=== PATIENT | male | born 1980 | race Caucasian/White ===

== ENCOUNTER 2021-09-07 15:22 | Emergency (ER) | payer OTHER, BC ==
[2021-09-07] MEDS ORDERED: fentaNYL 100 MCG/2 ML SDV IM ONE (15:55)
--- NOTE | 2021-09-07 16:16 | EDM.PDOC ---
ED HPI GENERAL MEDICAL PROBLEM - General Chief Complaint: Upper Extremity Injury/Pain Stated Complaint: L ARM INJURY Time Seen by Provider: 09/07/21 15:29 Source of Information: Reports: Patient - History of Present Illness INITIAL COMMENTS - FREE TEXT/NARRATIVE: Osmin is a 41 y/o male who comes to the ER with complaints of a work related injury. He works at [employer] and apparently tripped over a saw horse about 1:30 pm today. He reports landing directly on his right knee and then catching himself with an outstretched left hand. He is complaining of pain in his left forearm and wrist that shoots into the elbow and also in his right knee. He was at the clinic and they sent him here to the ER. No meds taken for pain. Left Lower Arm Pain Score (Numeric/FACES): 9 Right Knee Pain Score (Numeric/FACES): 8 - Related Data Allergies Allergy/AdvReac Type Severity Reaction Status Date / Time acetaminophen Allergy Rash Verified 09/07/21 16:41 [From Darvocet-N] ciprofloxacin [From Cipro] Allergy Rash Verified 09/07/21 16:41 ketorolac [From Toradol] Allergy Rash Verified 09/07/21 16:41 propoxyphene Allergy Rash Verified 09/07/21 16:41 [From Darvocet-N] Home Meds: Home Meds Cyclobenzaprine [Flexeril] 10 mg PO TID 09/07/21 [History] Escitalopram Oxalate [Lexapro] 20 mg PO DAILY 09/07/21 [History] Hydrocodone/Acetaminophen [HYDROcodone-Acetaminophen 5-325 MG] 2 each PO Q4H PRN #20 tab 09/07/21 [Rx] Metoprolol Succinate 50 mg PO DAILY 09/07/21 [History] Naltrexone 50 mg PO DAILY 09/07/21 [History] amLODIPine [Norvasc] 5 mg PO DAILY 09/07/21 [History] buPROPion [Wellbutrin] 100 mg PO BID 09/07/21 [History] metFORMIN [Glucophage] 500 mg PO BIDMEALS 09/07/21 [History] Review of Systems - Review of Systems Review Of Systems: See Below Constitutional: Reports: No Symptoms Eyes: Reports: No Symptoms Ears: Reports: No Symptoms Nose: Reports: No Symptoms Mouth/Throat: Reports: No Symptoms Respiratory: Reports: No Symptoms Cardiovascular: Reports: No Symptoms GI/Abdominal: Reports: No Symptoms Genitourinary: Reports: No Symptoms Musculoskeletal: Reports: Arm Pain (left forearm), Joint Pain (Right knee) Skin: Reports: No Symptoms Neurological: Reports: No Symptoms Psychiatric: Reports: No Symptoms ED EXAM, GENERAL - Physical Exam Exam: See Below General Appearance: Alert, WD/WN, No Apparent Distress (Adult male, dressed in work clothes, sitting augie wheelchair, needs assistance to get up and into bathroom, but able to use bathroom by himself.) Ears: Hearing Grossly Normal Throat/Mouth: Normal Voice Head: Atraumatic, Normocephalic Respiratory/Chest: No Respiratory Distress GI/Abdominal: Soft (Male) Exam: Deferred Rectal (Males) Exam: Deferred Back Exam: Normal Inspection, Full Range of Motion Extremities: Other (Note left forearm tenderness to palpation, no deformity or brusing noted, CMS nml, ROM normal although painful; Right knee appears unremarkable, +tender over proximal platellar region, no effusion noted, but body habitus hinders exam, ligaments stable.) Neurological: CN II-XII Intact, Normal Cognition, No Motor/Sensory Deficits Skin Exam: Warm, Dry, Intact, Normal Color Course - Vital Signs Text/Narrative:: 1529 The patient was seen by the SENIOR FORMULATION SCIENTIST. Xrays ordered. He was given Fentanyl 100mcg IM for pain. 1645 Xrays reviewed by SENIOR FORMULATION SCIENTIST. No acute findings noted, suspect soft tissue/sprain injuries. Knee brace applied to right knee, STEVE wrap applied to left forearm/wrist region. After STEVE applied, pt reported that he had more pain in the left elbow region now, xray reviewed and radiology report returned and note nondisplaced radial head fx of proximal radial head. Posterior Ortho-glass splint applied to left arm with sling. Will have the patient seen tomorrow in [facility] for further management, No work until seen by Ortho since this is a work related injury. He was given discharge instructions and left the ER in stable condition. Last Recorded V/S: Last Vital Signs Temp 36.9 C 09/07/21 16:03 Pulse 69 09/07/21 16:03 Resp 18 09/07/21 16:03 BP 148/91 H 09/07/21 16:03 Pulse Ox - Orders/Labs/Meds Orders: Active Orders 24 hr Category Date Time Status Elbow Min 3V Lt [CR] Stat Exams 09/07/21 16:56 Stop Req Knee 3V Lt [CR] Stat Exams 09/07/21 15:48 Stop Req DME for Discharge [COMM] Stat Oth 09/07/21 17:18 Ordered Meds: Medications Discontinued Medications Generic Name Dose Route Start Last Admin Trade Name Freq PRN Reason Stop Dose Admin Fentanyl 100 mcg 09/07/21 15:55 09/07/21 16:28 Fentanyl 100 Mcg/2 Ml Sdv IM 09/07/21 15:56 100 mcg ONETIME ONE Administration - Radiology Interpretation Free Text/Narrative:: -XR Right Knee-negative XR Left Forearm-notes nondisplaced radial head fx of proximal radius Departure - Departure Time of Disposition: 17:14 Disposition: Home, Self-Care 01 Condition: Good Clinical Impression: Work related injury Left radial head fracture Qualifiers: Encounter type: initial encounter Fracture type: closed Fracture alignment: nondisplaced Qualified Code(s): S52.125A - Nondisplaced fracture of head of left radius, initial encounter for closed fracture Right knee pain Qualifiers: Chronicity: acute Qualified Code(s): M25.561 - Pain in right knee Fall due to stumbling Qualifiers: Encounter type: initial encounter Qualified Code(s): W01.0XXA - Fall on same level from slipping, tripping and stumbling without subsequent striking against object, initial encounter - Discharge Information Prescriptions: Hydrocodone/Acetaminophen [HYDROcodone-Acetaminophen 5-325 MG] 2 each PO Q4H PRN #20 tab PRN Reason: Pain (Moderate 4-6) Instructions: How to use a Sling, [id number], Radial Head Fracture, Acute Knee Pain, Adult, [id number] Referrals: Bruno Pastrana MD [Primary Care Provider] - Forms: ED Department Discharge, ED Return to Work/School Form Additional Instructions: -Ibuprofen 400mg oral every 6 hours as needed if you are able to take this med -Hydrocodone/APAP 5/325mg 1-2 tablets every 4-6 hours as needed for pain #20 (Rx) -Apply ice as able -Keep the affected extremity elevated as much as possible -Use an arm sling if needed when you are up and walking -No work until seen by Orthopedics -Follow up with [facility], [address] [place], [place] [address] . They are open Tuesday-Tuesday 8:00 am- 4:30pm -Return to the ER as needed for any concerns Sepsis Event Note (ED) - Focused Exam Vital Signs: Vital Signs Temp Pulse Resp BP 09/07/21 16:03 36.9 C 69 18 148/91 H - Problem List & Annotations (1) Left radial head fracture SNOMED Code(s): 929768303 Code(s): S52.122A - DISP FX OF HEAD OF LEFT RADIUS, INIT FOR CLOS FX Status: Acute Current Visit: Yes Annotation/Comment:: Posterior Orthoglass spint applied. Sling. Pain meds given. FU with [facility] tomorrow for FU and further care. Qualifiers: Encounter type: initial encounter Fracture type: closed Fracture alignment: nondisplaced Qualified Code(s): S52.125A - Nondisplaced fracture of head of left radius, initial encounter for closed fracture (2) Right knee pain SNOMED Code(s): 6524665986 Code(s): M25.561 - PAIN IN RIGHT KNEE Status: Acute Current Visit: Yes Annotation/Comment:: -Knee brace given, xray neg. Qualifiers: Chronicity: acute Qualified Code(s): M25.561 - Pain in right knee (3) Work related injury SNOMED Code(s): 55756117 Code(s): Y99.0 - CIVILIAN ACTIVITY DONE FOR INCOME OR PAY Status: Acute Current Visit: Yes (4) Fall due to stumbling SNOMED Code(s): 42631585 Code(s): W01.0XXA - FALL SAME LEV FROM SLIP/TRIP W/O STRIKE AGAINST OBJECT, INIT Status: Acute Current Visit: Yes Qualifiers: Encounter type: initial encounter Qualified Code(s): W01.0XXA - Fall on same level from slipping, tripping and stumbling without subsequent striking against object, initial encounter - Problem List Review Problem List Initiated/Reviewed/Updated: Yes - My Orders Last 24 Hours: My Active Orders 09/07/21 15:48 Knee 3V Lt [CR] Stat 09/07/21 16:56 Elbow Min 3V Lt [CR] Stat 09/07/21 17:18 DME for Discharge [COMM] Stat - Assessment/Plan Last 24 Hours: My Active Orders 09/07/21 15:48 Knee 3V Lt [CR] Stat 09/07/21 16:56 Elbow Min 3V Lt [CR] Stat 09/07/21 17:18 DME for Discharge [COMM] Stat Plan: See above
--- NOTE | 2021-09-07 16:59 | CR ---
[id number] RAD/RAD Knee Right 3V EXAM: RAD Knee Right 3V INDICATION: FELL AT WORK. COMPARISON: None. DISCUSSION: Early medial and patellofemoral compartment degenerative changes. Trace joint effusion. No acute fracture or dislocation. Varicosities are suggested. IMPRESSION: 1. No acute findings. Jed Gonzalez MD 09/07/21 1761 Thank you for allowing us to participate in the care of your patient.
--- NOTE | 2021-09-07 17:00 | CR ---
[id number] RAD/RAD Forearm Left 2V Exam: RAD Forearm Left 2V Indication:FALL AT WORK,TRIPPED. Comparison: No prior imaging for comparison. Discussion/Impression: Acute nondisplaced a mildly impacted fracture of the proximal radius at the head neck junction seen best on AP view. Joint effusion. No dislocation. Lateral view demonstrates soft tissue edema along the dorsal forearm. Gonzalez Horvath MD 09/07/21 8708 Thank you for allowing us to participate in the care of your patient.
== END 2021-09-07 17:41 | disposition home or self-care (01) ==
LOC: VM.ED 15:22
DX: S52.125A Nondisplaced fracture of head of left radius, initial encounter for closed fracture (principal); M25.561 Pain in right knee; Z88.8 Allergy status to other drugs, medicaments and biological substances; W01.0XXA Fall on same level from slipping, tripping and stumbling without subsequent striking against object, initial encounter; Y99.0 Civilian activity done for income or pay
CPT/HCPCS: 29125; 73090-LT; 73562-RT; 96372; 99283; 99283-25; J3010

== ENCOUNTER 2024-07-12 13:07 | Emergency (ER) | payer OTHER ==
[2024-07-12] MEDS: Lidocaine 2% 5 ML SDV INJECT ONE (14:59)
[2024-07-12] MEDS: Acetaminophen 500 MG Tab PO ONE (15:05)
[2024-07-12] MEDS: Diphtheria,Pertussis(Acell),Tetanus Vaccine 0.5 ML Syringe IM ONE (15:09)
[2024-07-12] MEDS: ceFAZolin 1 GM Vial IM ONE (15:42)
[2024-07-12] MEDS ORDERED: HYDROmorphone 1 MG/ML Syringe IVPUSH ONE (15:52)
== END 2024-07-12 15:49 | disposition home or self-care (01) ==
LOC: VM.ED 13:07 → SUPCPDRO 13:07 → VM.ED 15:49
DX: S62.641B Nondisplaced fracture of proximal phalanx of left index finger, initial encounter for open fracture (principal); I10 Essential (primary) hypertension; E66.9 Obesity, unspecified; Z23 Encounter for immunization; Z79.899 Other long term (current) drug therapy; Z88.6 Allergy status to analgesic agent; Z88.1 Allergy status to other antibiotic agents; Z88.5 Allergy status to narcotic agent; Z88.8 Allergy status to other drugs, medicaments and biological substances; Z68.43 Body mass index [BMI] 50.0-59.9, adult; W23.1XXA Caught, crushed, jammed, or pinched between stationary objects, initial encounter; Y99.0 Civilian activity done for income or pay
CPT/HCPCS: 12001; 73140-F1; 90471; 90715; 96372; 99283; 99283-25; A9270-GY; J0690; J3490